=== PATIENT | female | born 1945 | race Caucasian/White ===

== ENCOUNTER 2017-04-15 11:31 | Outpatient (RCR) | payer MEDICARE, OTHER | END 2017-04-15 12:55 | disposition home or self-care (01) | PROVIDERS: ATTEND Nurse Practitioner Family | DX: Z47.1 Aftercare following joint replacement surgery (principal); Z96.652 Presence of left artificial knee joint ==

== ENCOUNTER 2018-02-19 18:28 | Emergency (ER) | payer MEDICARE, OTHER ==
[~2018-02-19] VITALS: Ht 172.7 cm; Wt 77.6 kg
--- NOTE | 2018-02-19 19:42 | ED Integumentary General ---
General Chief Complaint: Allergic Reaction Stated Complaint: ALLERGIC REACTION TO FACE WASH AND LOTION Nursing Triage Note: PT PRESENTS TO ER WITH COMPLAINT OF FACIAL REDNESS AND ITCHING/BURNING. STATES SHE USED A DIFFERENT FACE WASH YESTERDAY AND HAS HAD SYMPTOMS EVER SINCE. STATES SHE TOOK ZYRTEC AT 9A AND BENADRYL AT 3P. Source: patient, family Exam Limitations: no limitations History of Present Illness Date Seen by Provider: Feb 19, 2018 Time Seen by Provider: 19:37 Initial Comments Patient is a 73-year-old female who presents to the emergency room with complaints of allergic reaction to the face. She reports that she started using a different face wash yesterday and has had symptoms ever since. She took Benadryl and Zyrtec today without relief. Timing/Duration: yesterday Location: face Possible Cause: soaps Modifying Factors: improves with other (go washcloth) Associated Symptoms: rash Allergies and Home Medications Allergies Coded Allergies: Aspirin (Verified Adverse Reaction, Mild, STOMACH UPSET, 05/02/07) Codeine (Verified Adverse Reaction, Mild, MAKES HER DIZZY, 05/02/07) Ibuprofen (Verified Adverse Reaction, Mild, STOMACH UPSET, 05/02/07) Propoxyphene (Verified Adverse Reaction, Mild, HEADACHE, 05/02/07) Patient Home Medication List Home Medication List Reviewed: Yes Constitutional: see HPI; No chills, No diaphoresis, No fever EENTM: no symptoms reported Respiratory: see HPI; No cough, No dyspnea on exertion, No hemoptysis, No short of breath, No stridor Cardiovascular: see HPI; No chest pain, No edema Gastrointestinal: see HPI; No abdominal pain, No constipation, No diarrhea Genitourinary: see HPI; No decreased output, No discharge, No dysuria Musculoskeletal: see HPI; No back pain, No gout, No joint pain Skin: see HPI, pruritus, rash (itching red rash to the face.) Psychiatric/Neurological: See HPI; Denies Anxiety, Denies Depressed Endocrine: See HPI; Denies Excessive Sweating, Denies Flushing Hematologic/Lymphatic: See HPI; Denies Anemia All Other Systems Reviewed Negative Unless Noted: Yes Past Ngkchsx-Ttxnay-Qiopmf Hx Past Med/Social Hx: Reviewed Nursing Past Med/Soc Hx Patient Social History Recent Foreign Travel: No Contact w/Someone Who Travel: No Recent Infectious Disease Expo: No Immunizations Up To Date Tetanus Booster (TDap): More than 5yrs Past Medical History Reproductive Disorders: No Family Medical History Reviewed Nursing Family Hx Physical Exam Vital Signs Capillary Refill : Less Than 3 Seconds General Appearance: WD/WN, no apparent distress HEENT: PERRL/EOMI, normal ENT inspection, TMs normal, pharynx normal Neck: non-tender, full range of motion, supple, normal inspection Cardiovascular: normal peripheral pulses, regular rate, rhythm, no edema, no gallop, no JVD, no murmur Respiratory: chest non-tender, lungs clear, normal breath sounds, no respiratory distress, no accessory muscle use Gastrointestinal: normal bowel sounds, non tender, soft, no organomegaly, no pulsatile mass Back: normal inspection, no CVA tenderness, no vertebral tenderness Extremities: normal range of motion, non-tender, normal inspection, no pedal edema, no calf tenderness Neurologic/Psychiatric: alert, normal mood/affect, oriented x 3 Skin: rash (patient has a pruritic erythematous rash to her face and a mask pattern) Skin Problem Character: erythema, rash, urticarial Lymphatic: no adenopathy Progress/Results/Core Measures Results/Orders My Orders Orders - GABINO ALLEN Diphenhydramine Injection (Benadryl Inje (02/19/18 19:45) Dexamethasone Injection (Decadron Inject (02/19/18 19:45) Im/Sub-Q Injection Non-Ab Ed (02/19/18 ) Vital Signs/I&O Blood Pressure Mean: 99 Departure Impression Primary Impression: Allergic reaction Disposition: 01 HOME, SELF-CARE Condition: Stable/Unchanged Departure-Patient Inst. Decision time for Depature: 19:38 Referrals: REMINGTON HEWITT DPM (PCP) Primary Care Physician SKYLAR DE DIOS MD Patient Instructions: Chemical Exposure to the Skin (DC) Add. Discharge Instructions: You may use Benadryl topical cream and oral Benadryl as directed by the bottle. Follow-up with Dr. De Dios within 1 week for recheck. Return back to the emergency room for any concerns as needed. All discharge instructions reviewed with patient and/or family. Voiced understanding. GABINO ALLEN Feb 19, 2018 19:42
[2018-02-19] MEDS ORDERED: diphenhydrAMINE 50 MG/ML INJ (BENADRYL) IM ONE (19:45)
[2018-02-19] MEDS ORDERED: DEXAMETHASONE 10 MG/ML (DECADRON) 1 ML VIAL IM ONE (19:45)
[2018-02-19 20:12] VITALS: BP 155/72
--- OUTSIDE RECORDS SUMMARY | 2018-02-20 13:02 | XMS REPORT | Continuity of Care Document ---
Author Author [facility] Organization [facility] Address Unknown Phone Unavailable Allergies Active Description Code Type Severity Reaction Onset Reported/Identified Relationship to Patient Clinical Status Yes ASPIRIN UNKNOWN UNKNOWN Yes CODEINE SULFATE UNKNOWN UNKNOWN Yes aspirin [id number] Drug Allergy Mild STOMACH UPSET 05/02/2007 Yes codeine [id number] Drug Allergy Mild MAKES HER DIZZY 05/02/2007 Yes ibuprofen [id number] Drug Allergy Mild STOMACH UPSET 05/02/2007 Yes propoxyphene [id number] Drug Allergy Mild HEADACHE 05/02/2007 Medications There is no data. Problems Date Dx Coded Attending Type Code Diagnosis Diagnosed By 07/07/1254 TANNER DE LA CRUZ APRN Ot Z47.1 AFTERCARE FOLLOWING JOINT REPLACEMENT MÉNDEZ 07/07/1254 TANNER DE LA CRUZ APRN Ot Z96.652 PRESENCE OF LEFT ARTIFICIAL KNEE JOINT 07/20/2013 SENG JANSEN, LUPE Pascal Ot 812.03 FX GR TUBEROS HUMERUS-CL 07/20/2013 SENG JANSEN, LUPE Pascal Ot 831.01 ANT DISLOC HUMERUS-CLOSE 07/20/2013 SENG JANSEN, LUPE Pascal Ot 959.2 SHLDR/UPPER ARM INJ NOS 07/20/2013 SENG JANSEN, LUPE Pascal Ot E000.8 OTHER EXTERNAL CAUSE STATUS 07/20/2013 SENG JANSEN, LUPE Pascal Ot E849.[address] NEC 07/20/2013 SENG JANSEN, LUPE Pascal Ot E885.9 FALL FROM SLIPPING, TRIPPING, OR STUMBLI 03/10/2017 TANNER DE LA CRUZ APRN Ot Z47.1 AFTERCARE FOLLOWING JOINT REPLACEMENT MÉNDEZ 03/10/2017 TANNER DE LA CRUZ APRN Ot Z96.652 PRESENCE OF LEFT ARTIFICIAL KNEE JOINT 03/17/2017 TANNER DE LA CRUZ APRN Ot Z47.1 AFTERCARE FOLLOWING JOINT REPLACEMENT MÉNDEZ 03/17/2017 JONO TANNER [employer] ENRICHMENT ASSISTANT Ot Z96.652 PRESENCE OF LEFT ARTIFICIAL KNEE JOINT 03/17/2017 JONO TANNER E LIFE ENRICHMENT ASSISTANT Ot Z47.1 AFTERCARE FOLLOWING JOINT REPLACEMENT MÉNDEZ 03/17/2017 JONO TANNER E LIFE ENRICHMENT ASSISTANT Ot Z96.652 PRESENCE OF LEFT ARTIFICIAL KNEE JOINT 03/17/2017 JONO, TANNER E LIFE ENRICHMENT ASSISTANT Ot Z47.1 AFTERCARE FOLLOWING JOINT REPLACEMENT MÉNDEZ 03/17/2017 JONO TANNER E LIFE ENRICHMENT ASSISTANT Ot Z96.652 PRESENCE OF LEFT ARTIFICIAL KNEE JOINT 04/15/2017 JONO TANNER E LIFE ENRICHMENT ASSISTANT Ot Z47.1 AFTERCARE FOLLOWING JOINT REPLACEMENT MÉNDEZ 04/15/2017 JONO TANNER E LIFE ENRICHMENT ASSISTANT Ot Z96.652 PRESENCE OF LEFT ARTIFICIAL KNEE JOINT 02/02/2018 REMINGTON HEWITT DPM Ot 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 Results Test Result Range Surgical Pathology - 01/11/18 11:00 Surg Path Sent to [facility] Encounters ACCT No. Visit Date/Time Discharge Status Pt. Type Provider Facility Loc./Unit Complaint [id number] 02/16/2018 15:15:00 02/16/2018 23:59:59 CLS Outpatient REMINGTON HEWITT DPM [facility] REHAB R ANKLE TENDONITIS [id number] 04/15/2017 11:31:00 04/15/2017 23:59:59 CLS Outpatient TANNER DE LA CRUZ APRN [facility] REHAB LT TKA [id number] 07/31/2014 12:36:00 07/31/2014 23:59:59 CLS Outpatient COLTHARP BHUPINDER ANGELO A [facility] QUICK [id number] 07/20/2013 08:16:00 07/20/2013 11:42:00 DIS Emergency SENG JANSEN, LUPE Pascal [facility] ER FALL/LEFT ARM INJURY [id number] 01/11/2018 10:00:00 01/11/2018 23:59:00 DIS Outpatient Indy Donis [id number] 04/08/2017 08:48:00 04/08/2017 23:59:00 DIS Outpatient Indy Donis [id number] 07/31/2014 12:37:45 ACT Document Registration
== END 2018-02-19 20:12 | disposition home or self-care (01) ==
LOC: EDUNIT# 18:28 → ER 18:30
DX: T78.40XA Allergy, unspecified, initial encounter (principal); Z88.6 Allergy status to analgesic agent; Z88.8 Allergy status to other drugs, medicaments and biological substances; Z88.5 Allergy status to narcotic agent
CPT/HCPCS: 96372; 99284

== ENCOUNTER 2020-12-03 15:24 | Outpatient (RCR) | payer MEDICARE, OTHER | END 2020-12-03 16:04 | disposition home or self-care (01) | PROVIDERS: ATTEND Nurse Practitioner Family | DX: S82.121D Displaced fracture of lateral condyle of right tibia, subsequent encounter for closed fracture with routine healing (principal) ==

== ENCOUNTER 2022-04-21 01:53 | Observation (INO) | payer MEDICARE, OTHER ==
[~2022-04-21] VITALS: Ht 172.7 cm; Wt 77.7 kg
[2022-04-21] VITALS (19 sets, daily range): BP systolic 132–166; BP diastolic 58–84
[2022-04-21] MEDS ORDERED: NITROGLYCERIN 0.4 MG SL TABS BTL 25'S SL PRN ×2 (02:00→04:45)
[2022-04-21] MEDS ORDERED: ASPIRIN 81 MG CHEW (CHILDREN'S ASA) PO ONE (02:15)
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
[2022-04-21 02:18] LABS: BASOPHILS % (AUTO) 1 % (0-10); EOSINOPHILS # (AUTO) 0.2 10^3/uL (0.0-0.3); EOSINOPHILS % (AUTO) 3 % (0-10); HEMATOCRIT 37 % (35-52); LYMPHOCYTES # (AUTO) 2.1 10^3/uL (1.0-4.0); LYMPHOCYTES % (AUTO) 30 % (12-44); MEAN CORPUSCULAR HEMOGLOBIN 28 pg (25-34); MEAN CORPUSCULAR HGB CONC 32 g/dL (32-36); MEAN CORPUSCULAR VOLUME 87 fL (80-99); MEAN PLATELET VOLUME 11.1 fL (9.0-12.2); MONOCYTES % (AUTO) 14 % (0-12); NEUTROPHILS # (AUTO) 3.8 10^3/uL (1.8-7.8); NEUTROPHILS % (AUTO) 53 % (42-75); PLATELET COUNT 243 10^3/uL (130-400); WHITE BLOOD COUNT 7.2 10^3/uL (4.3-11.0)
[2022-04-21 02:29] LABS: ALBUMIN 4.3 GM/DL (3.2-4.5); POTASSIUM 3.8 MMOL/L (3.6-5.0)
[2022-04-21 02:31] LABS: CALCIUM 9.5 MG/DL (8.5-10.1)
[2022-04-21 02:32] LABS: TOTAL PROTEIN 7.5 GM/DL (6.4-8.2)
[2022-04-21 02:33] LABS: BILIRUBIN,TOTAL 0.2 MG/DL (0.1-1.0)
[2022-04-21 02:35] LABS: CREATININE SERUM 0.97 MG/DL (0.60-1.30)
[2022-04-21 02:38] LABS: MAGNESIUM 2.1 MG/DL (1.6-2.4)
[2022-04-21 02:42] LABS: INR 0.9 (0.8-1.4); PROTHROMBIN TIME PATIENT 12.4 SEC (12.2-14.7)
[2022-04-21 02:51] LABS: CREATINE KINASE MB 7.6 NG/ML (<6.6)
[2022-04-21 02:57] LABS: CLARITY,URINE CLEAR; COLOR,URINE YELLOW; GLUCOSE, URINE (UA) NEGATIVE (NEGATIVE); PH,URINE 5.5 (5-9); PROTEIN,URINE NEGATIVE (NEGATIVE)
[2022-04-21 02:58] LABS: BACTERIA,URINE NEGATIVE /HPF; BILIRUBIN,URINE NEGATIVE (NEGATIVE); KETONES,URINE NEGATIVE (NEGATIVE); LEUKOCYTE ESTERASE ,URINE TRACE (NEGATIVE); NITRITE,URINE NEGATIVE (NEGATIVE); WBC,URINE RARE /HPF
[2022-04-21] MEDS ORDERED: ONDANSETRON 4 MG/2 ML (SDV) Z0FRAN IVP PRN (04:45)
[2022-04-21] MEDS ORDERED: morphine INJ 4 MG/ML 1 ML (VIAL/SYRINGE) IV PRN (04:45)
[2022-04-21 05:32] LABS: TRIGLYCERIDES 136 MG/DL (<150); VLDL CHOLESTEROL 27 MG/DL (5-40)
[2022-04-21 05:37] LABS: CHOLESTEROL 174 MG/DL (< 200); HDL CHOLESTEROL 51 MG/DL (40-60)
[2022-04-21] MEDS: CATHETER FLUSH 10 ML SYR IVP SCH ×3 (06:00→20:18)
--- NOTE | 2022-04-21 06:16 | Diagnostic Imaging Report ---
INDICATION: Chest pain. FINDINGS: Portable chest. The lungs are well-aerated and clear. Heart is not enlarged. No pulmonary edema or hilar adenopathy. No pneumothorax or pleural effusion. No bony abnormalities. IMPRESSION: Normal portable chest. Dictated by: Dictated on workstation # [id number]
--- NOTE | 2022-04-21 07:42 | Consultation-Cardiology ---
HPI-Cardiology Cardiology Consultation: Date of Consultation 04/21/22 Time Seen by a Provider: 08:30 Date of Admission 04-21-22 Attending Physician Indy Donis MD Admitting Physician Admitting Physician: Navya Herr DO Attending Physician: Navya Herr DO Consulting Physician Liliana Kelsey MD HPI: Chief Complaint: Chest pain Ms. Summers is a 77 yr old female admitted to [facility] from the ED with c/o CP. She reports she was lying in bed when she developed mid-sternal chest discomfort which she describes as a burning, pressure sensation that radiated up her chest. She reports nothing made it better or worse. She denies any associated symptoms. She reports the discomfort was constant for over 30 minutes prompting her to come to the ED. She states last night while in the ED she did develop the discomfort again, but feels it was not as intense and it only lasted a few minutes that time. She reports no further discomfort since. She denies any n/v/d. No c/o fever or chills. No LE swelling. Review of Systems-Cardiology Review of Systems Constitutional: No chills, No fever, No lightheadedness, No malaise Eyes: No vision change Ears/Nose/Throat: No epistaxis, No nasal drainage, No recent hearing loss Respiratory: As described under HPI Cardiovascular: As described under HPI Gastrointestinal: No constipation, No diarrhea, No nausea, No vomiting Genitourinary: No dysuria, No hematuria Musculoskeletal: no symptoms reported Skin: No rash on exposed areas, No ulcerations on exposed areas Psychiatric/Neurological: No anxiety, No depression, No seizure, No focal weakness, No syncope Hematologic: No bleeding abnormalities VRO-Dwsajn-Vnctir Hx Patient Social History Smoking Status: Never a Smoker Have you traveled recently?: No Alcohol Use?: No Pt feels they are or have been: No Immunizations Up To Date Tetanus Booster (TDap): More than 5yrs Past Medical History PMH As described under Assessment. Family Medical History Family Medical History: No known family h/o CAD. Allergies and Home Medications Allergies Coded Allergies: aspirin (Verified Adverse Reaction, Mild, STOMACH UPSET, 05/02/07) codeine (Verified Adverse Reaction, Mild, MAKES HER DIZZY, 05/02/07) ibuprofen (Verified Adverse Reaction, Mild, STOMACH UPSET, 05/02/07) propoxyphene (Verified Adverse Reaction, Mild, HEADACHE, 05/02/07) Patient Home Medication List Cyanocobalamin (Cyanocobalamin Injection) 1,000 Mcg/Ml Inj, 1,000 MCG IM MONTHLY, (Reported) Entered as Reported by: MADELINE CHIN on 04/21/221050 Last Action: Reviewed Latanoprost (Xalatan) 0.005 % Drops, 1 DROP OU HS, (Reported) Entered as Reported by: MADELINE CHIN on 04/21/221050 Last Action: Reviewed Levothyroxine Sodium (Levothyroxine Sodium) 50 Mcg Tablet, 50 MCG PO DAILY, (Reported) Entered as Reported by: MADELINE CHIN on 04/21/221050 Last Action: Reviewed Losartan Potassium (Losartan Potassium) 50 Mg Tablet, 50 MG PO BID WITH MEALS, (Reported) Entered as Reported by: MADELINE CHIN on 04/21/221050 Last Action: Reviewed Simvastatin (Simvastatin) 10 Mg Tablet, 10 MG PO HS, (Reported) Entered as Reported by: MADELINE CHIN on 04/21/221050 Last Action: Reviewed Physical Exam-Cardiology Physical Exam Vital Signs/I&O 04/21/22 04/21/22 04/21/22 04/21/22 01:59 03:59 04:28 04:29 Temp 36.0 36.0 Pulse 76 57 64 59 Resp 16 16 B/P (MAP) 184/99 (127) 136/78 138/80 (92) Pulse Ox 97 98 O2 Delivery Room Air Room Air Room Air 04/21/22 04/21/22 04/21/22 04/21/22 04:30 04:30 04:36 04:36 Temp 36.3 Pulse 63 Resp 24 B/P (MAP) 134/80 (93) Pulse Ox 98 97 O2 Delivery Room Air Room Air Room Air 04/21/22 04/21/22 04/21/22 04/21/22 04:45 05:02 05:15 05:30 Pulse 62 65 56 76 Resp 26 B/P (MAP) 153/73 (95) 152/67 (99) 154/76 (95) 135/59 (82) Pulse Ox 98 94 O2 Delivery Room Air Room Air Room Air Room Air 04/21/22 04/21/22 04/21/2222 06:00 07:34 08:00 08:00 Pulse 63 70 75 Resp 20 21 B/P (MAP) 132/60 (80) 154/76 (102) Pulse Ox 96 99 O2 Delivery Room Air Room Air Room Air 04/21/22 04/21/22 04/21/22 04/21/22 08:49 09:00 10:00 11:00 Temp 37.0 Pulse 68 69 65 63 Resp 19 20 17 16 B/P (MAP) 154/76 (102) 150/69 (96) 157/74 (101) 166/73 (104) Pulse Ox 97 96 98 98 O2 Delivery Room Air Room Air Room Air Room Air 04/21/22 04/21/22 12:00 12:33 Pulse 56 63 Resp 27 B/P (MAP) 138/63 (88) Pulse Ox 97 O2 Delivery Room Air Capillary Refill : Less Than 3 Seconds Constitutional: AAO x 3, well-developed, well-nourished HEENT: PERRL, hearing is well preserved, oral hygience is good Neck: No carotid bruit; carotid pulses are 2 + bilaterally Respiratory: No accessory muscle use, No respiratory distress; chest expansion is symmetric, chest is bilaterally symmetric, lungs clear to auscultation Cardiovascular: regular rate-rhythm; No JVD; S1 and S2, systolic murmur (2-3/6 MSM) Gastrointestinal: soft, round; No guarding; audible bowel sounds Extremities: no lower extremity edema bilateral Neurologic/Psychiatric: grossly intact (moves all extremities) Skin: No rash on exposed areas, No ulcerations on exposed areas Data Review Labs Laboratory Tests 04/21/22 02:05: White Blood Count 7.2, Red Blood Count 4.28, Hemoglobin 12.0, Hematocrit 37, Mean Corpuscular Volume 87, Mean Corpuscular Hemoglobin 28, Mean Corpuscular Hemoglobin Concent 32, Red Cell Distribution Width 14.6H, Platelet Count 243, Mean Platelet Volume 11.1, Immature Granulocyte % (Auto) 0, Neutrophils (%) (Auto) 53, Lymphocytes (%) (Auto) 30, Monocytes (%) (Auto) 14H, Eosinophils (%) (Auto) 3, Basophils (%) (Auto) 1, Neutrophils # (Auto) 3.8, Lymphocytes # (Auto) 2.1, Monocytes # (Auto) 1.0, Eosinophils # (Auto) 0.2, Basophils # (Auto) 0.0, Immature Granulocyte # (Auto) 0.0, Prothrombin Time 12.4, INR Comment 0.9, Activated Partial Thromboplast Time 30, Sodium Level 143, Potassium Level 3.8, Chloride Level 106, Carbon Dioxide Level 22, Anion Gap 15H, Blood Urea Nitrogen 18, Creatinine 0.97, Estimat Glomerular Filtration Rate 61, BUN/Creatinine Ratio 19, Glucose Level 112H, Calcium Level 9.5, Corrected Calcium 9.3, Magnesium Level 2.1, Total Bilirubin 0.2, Aspartate Amino Transf (AST/SGOT) 31, Alanine Aminotransferase (ALT/SGPT) 24, Alkaline Phosphatase 76, Total Creatine Kinase 374H, Creatine Kinase MB 7.6*H, Myoglobin 101.9H, Troponin I < 0.028, B-Type Natriuretic Peptide 50.1, Total Protein 7.5, Albumin 4.3, Amylase Level 72, Lipase 27 04/21/22 02:30: Urine Color YELLOW, Urine Clarity CLEAR, Urine pH 5.5, Urine Specific [place] <=1.005, Urine Protein NEGATIVE, Urine Glucose (UA) NEGATIVE, Urine Ketones NEGATIVE, Urine Nitrite NEGATIVE, Urine Bilirubin NEGATIVE, Urine Urobilinogen 0.2, Urine Leukocyte Esterase TRACEH, Urine RBC (Auto) NEGATIVE, Urine RBC NONE, Urine WBC RARE, Urine Crystals NONE, Urine Bacteria NEGATIVE, Urine Casts NONE, Urine Mucus NEGATIVE, Urine Culture Indicated NO 04/21/22 04:54: Troponin I < 0.028, Triglycerides Level 136, Cholesterol Level 174, LDL Cholesterol Direct 108, VLDL Cholesterol 27, HDL Cholesterol 51 04/21/22 09:05: Troponin I < 0.028 Radiology NAME: KOJO SUMMERS [facility] REC#: [id number] PT STATUS: ADM Blaze : 1945 PHYSICIAN: INDY ORTEGA DO ADMIT DATE: 04/21/22/MONAE Draft Date of Exam:04/21/22 CHEST 1 VIEW, AP/PA ONLY INDICATION: Chest pain. FINDINGS: Portable chest. The lungs are well-aerated and clear. Heart is not enlarged. No pulmonary edema or hilar adenopathy. No pneumothorax or pleural effusion. No bony abnormalities. IMPRESSION: Normal portable chest. Dictated on workstation # [id number] Dict: 04/21/22614 Trans: 04/21/22 0616 [id number] Interpreted by: DHARMESH BILLINGSLEY MD Electronically signed by: ECG Impression ECG Initial ECG Rhythm: Normal Sinus A/P-Cardiology Assessment/Admission Diagnosis Chest pain - no evidence of ACS - undetermined etiology Aortic stenosis - [place] [facility] [place] showed LVEF 60%. Mild to mod aortic valve stenosis, mild to mod aortic regurg. Mild MR and TR. PASP 25 mmHg HTN Hyperlipidemia - treated with statin, managed by Dr Donis Carotid u/s of 02-10-22 showed mild to mod bilat dz Discussion and Recomendations Chest pain of undetermined etiology - no evidence of ACS - advise MPI to eval perfusion based on symptoms and h/o Add PPI Continue home anti-hypertensive regimen Monitor lab closely Replace electrolytes as indicated Further recs will be based on her hospital course We would like to thank medical services for this consult Clinical Quality Measures AMI/AHF: ASA po Prior to arrival: ZEUS Garcia Apr 21, 2022 07:42
[2022-04-21] MEDS: PANTOPRAZOLE 40 MG (PROTONIX) TAB PO SCH (09:11)
[2022-04-21] MEDS: ASPIRIN E.C. 81 MG (ECOTRIN) TAB PO SCH (09:11)
--- NOTE | 2022-04-21 09:45 | Consultation-Cardiology ---
HPI-Cardiology Cardiology Consultation: Date of Consultation 04/21/22 Time Seen by a Provider: 09:30 Date of Admission Attending Physician Indy Donis MD Admitting Physician Admitting Physician: Navya Herr DO Attending Physician: Navya Herr DO Consulting Physician МАРИНА BROWN MD, MA, FACP, FACC, [facility] [place] CCDS HPI: Chief Complaint: Chest pain Ms. Guzmán is a 77 yr old female admitted to [facility] from the ED with c/o CP. She reports she was lying in bed when she developed mid-sternal chest discomfort which she describes as a burning, pressure sensation that radiated up her chest. She reports nothing made it better or worse. She denies any associated symptoms. She reports the discomfort was constant for over an hour prompting her to come to the ED. It was more than a couple of hours before it resolved in the ED, nitro helped some but did not resolve it completely. She states last night while in the ED she did develop the discomfort again, but feels it was not as intense and it only lasted a few minutes that time. She reports no further discomfort since. She denies any n/v/d. No c/o fever or chills. No LE swelling. Review of Systems-Cardiology Review of Systems Constitutional: No chills, No fever, No lightheadedness, No malaise Eyes: No vision change Ears/Nose/Throat: No epistaxis, No nasal drainage, No recent hearing loss Respiratory: As described under HPI Cardiovascular: As described under HPI Gastrointestinal: No constipation, No diarrhea, No nausea, No vomiting Genitourinary: No dysuria, No hematuria Musculoskeletal: no symptoms reported Skin: No rash on exposed areas, No ulcerations on exposed areas Psychiatric/Neurological: No anxiety, No depression, No seizure, No focal weakness, No syncope Hematologic: No bleeding abnormalities [id number]-[id number]-Llfqmz Hx Patient Social History Smoking Status: Never a Smoker Have you traveled recently?: No Alcohol Use?: No Pt feels they are or have been: No Immunizations Up To Date Tetanus Booster (TDap): More than 5yrs Past Medical History PMH As described under Assessment. Family Medical History Family Medical History: No known family h/o CAD. Allergies and Home Medications Allergies Coded Allergies: aspirin (Verified Adverse Reaction, Mild, STOMACH UPSET, 05/02/07) codeine (Verified Adverse Reaction, Mild, MAKES HER DIZZY, 05/02/07) ibuprofen (Verified Adverse Reaction, Mild, STOMACH UPSET, 05/02/07) propoxyphene (Verified Adverse Reaction, Mild, HEADACHE, 05/02/07) Patient Home Medication List Home Medication List Reviewed: Yes Physical Exam-Cardiology Physical Exam Vital Signs/I&O 04/21/22 04/21/22 04/21/22 04/21/22 01:59 03:59 04:28 04:29 Temp 36.0 36.0 Pulse 76 57 64 59 Resp 16 16 B/P (MAP) 184/99 (127) 136/78 138/80 (92) Pulse Ox 97 98 O2 Delivery Room Air Room Air Room Air 04/21/22 04/21/22 04/21/22 04/21/22 04:30 04:30 04:36 04:36 Temp 36.3 Pulse 63 Resp 24 B/P (MAP) 134/80 (93) Pulse Ox 98 97 O2 Delivery Room Air Room Air Room Air 04/21/22 04/21/22 04/21/22 04/21/22 04:45 05:02 05:15 05:30 Pulse 62 65 56 76 Resp 26 B/P (MAP) 153/73 (95) 152/67 (99) 154/76 (95) 135/59 (82) Pulse Ox 98 94 O2 Delivery Room Air Room Air Room Air Room Air 04/21/22 04/21/22 04/21/22 04/21/22 06:00 07:34 08:00 08:49 Temp 37.0 Pulse 63 70 75 68 Resp 20 21 19 B/P (MAP) 132/60 (80) 154/76 (102) 154/76 (102) Pulse Ox 96 99 97 O2 Delivery Room Air Room Air Room Air 04/21/22 09:00 Pulse 69 Resp 20 B/P (MAP) 150/69 (96) Pulse Ox 96 O2 Delivery Room Air Capillary Refill : Less Than 3 Seconds Constitutional: AAO x 3, well-developed, well-nourished HEENT: PERRL, hearing is well preserved, oral hygience is good Neck: No carotid bruit; carotid pulses are 2 + bilaterally Respiratory: No accessory muscle use, No respiratory distress; chest expansion is symmetric, chest is bilaterally symmetric, lungs clear to auscultation Cardiovascular: regular rate-rhythm; No JVD; S1 and S2, systolic murmur (2-3/6 MSM) Gastrointestinal: soft, round; No guarding; audible bowel sounds Extremities: no lower extremity edema bilateral Neurologic/Psychiatric: grossly intact (moves all extremities) Skin: No rash on exposed areas, No ulcerations on exposed areas Data Review Labs Laboratory Tests 04/21/22 02:05: White Blood Count 7.2, Red Blood Count 4.28, Hemoglobin 12.0, Hematocrit 37, Mean Corpuscular Volume 87, Mean Corpuscular Hemoglobin 28, Mean Corpuscular Hemoglobin Concent 32, Red Cell Distribution Width 14.6H, Platelet Count 243, Mean Platelet Volume 11.1, Immature Granulocyte % (Auto) 0, Neutrophils (%) (Auto) 53, Lymphocytes (%) (Auto) 30, Monocytes (%) (Auto) 14H, Eosinophils (%) (Auto) 3, Basophils (%) (Auto) 1, Neutrophils # (Auto) 3.8, Lymphocytes # (Auto) 2.1, Monocytes # (Auto) 1.0, Eosinophils # (Auto) 0.2, Basophils # (Auto) 0.0, Immature Granulocyte # (Auto) 0.0, Prothrombin Time 12.4, INR Comment 0.9, Activated Partial Thromboplast Time 30, Sodium Level 143, Potassium Level 3.8, Chloride Level 106, Carbon Dioxide Level 22, Anion Gap 15H, Blood Urea Nitrogen 18, Creatinine 0.97, Estimat Glomerular Filtration Rate 61, BUN/Creatinine Ratio 19, Glucose Level 112H, Calcium Level 9.5, Corrected Calcium 9.3, Magnesium Level 2.1, Total Bilirubin 0.2, Aspartate Amino Transf (AST/SGOT) 31, Alanine Aminotransferase (ALT/SGPT) 24, Alkaline Phosphatase 76, Total Creatine Kinase 374H, Creatine Kinase MB 7.6*H, Myoglobin 101.9H, Troponin I < 0.028, B-Type Natriuretic Peptide 50.1, Total Protein 7.5, Albumin 4.3, Amylase Level 72, Lipase 27 04/21/22 02:30: Urine Color YELLOW, Urine Clarity CLEAR, Urine pH 5.5, Urine Specific [place] <=1.005, Urine Protein NEGATIVE, Urine Glucose (UA) NEGATIVE, Urine Ketones NEGATIVE, Urine Nitrite NEGATIVE, Urine Bilirubin NEGATIVE, Urine Urobilinogen 0.2, Urine Leukocyte Esterase TRACEH, Urine RBC (Auto) NEGATIVE, Urine RBC NONE, Urine WBC RARE, Urine Crystals NONE, Urine Bacteria NEGATIVE, Urine Casts NONE, Urine Mucus NEGATIVE, Urine Culture Indicated NO 04/21/22 04:54: Troponin I < 0.028, Triglycerides Level 136, Cholesterol Level 174, LDL Cholesterol Direct 108, VLDL Cholesterol 27, HDL Cholesterol 51 04/21/22 09:05: Troponin I < 0.028 A/P-Cardiology Assessment/Admission Diagnosis Chest pain - no evidence of ACS - undetermined etiology Aortic stenosis - Ech[place]ogram of 01-29-22 at [facility] [place] Mcdaniels showed LVEF 60%. Mild to mod aortic valve stenosis, mild to mod aortic regurg. Mild MR and TR. PASP 25 mmHg HTN Hyperlipidemia - treated with statin, managed by Dr Gagandeep Gracia u/s of 02-10-22 showed mild to mod bilat dz Discussion and Recomendations Chest pain of undetermined etiology - no evidence of ACS - advise MPI to eval perfusion based on symptoms and h/o Add PPI Continue home anti-hypertensive regimen Monitor lab closely Replace electrolytes as indicated Further recs will be based on her hospital course We would like to thank medical services for this consult. Discussed with Dr Herr Clinical Quality Measures AMI/AHF: ASA po Prior to arrival: МАРИНА Jackson MD FACP FAC CCDS Apr 21, 2022 09:45
[2022-04-21] MEDS ORDERED: SIMV10TA26 PO (10:51)
[2022-04-21] MEDS ORDERED: LATA2.5D19 OU (10:51)
[2022-04-21] MEDS ORDERED: LOSA50TA63 PO (10:51)
[2022-04-21] MEDS ORDERED: LEVO50TA6 PO (10:51)
[2022-04-21] MEDS ORDERED: CNC1KV IM (10:51)
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
[2022-04-21] MEDS ORDERED: PATIENT MAY USE OWN MEDS, ALL MC SCH ×2 (15:00→15:15)
[2022-04-21] MEDS: LOSARTAN 50 MG (COZAAR) TAB PO SCH (18:20)
[2022-04-21] MEDS ORDERED: ACETAMINOPHEN 325 MG TABLET PO PRN (19:45)
[2022-04-21] MEDS ORDERED: MELATONIN 3 MG TABLET PO PRN (19:45)
[2022-04-21] MEDS ORDERED: LOPERAMIDE 2 MG (IMODIUM) TABLET PO PRN (19:45)
[2022-04-21] MEDS ORDERED: HYDROcodone/APAP 5 MG/325 MG (LORTAB) TAB PO PRN (19:45)
[2022-04-21] MEDS ORDERED: MENTHOL/ZINC OXIDE (CALMOSEPTINE) 113 GM TUBE TP PRN (19:45)
[2022-04-21] MEDS ORDERED: CALCIUM CARBONATE 500 MG (TUMS) TAB.CHEW PO PRN (19:45)
[2022-04-21] MEDS ORDERED: DOCUSATE SODIUM 100 MG (COLACE) CAP PO PRN (19:45)
[2022-04-21] MEDS ORDERED: ALPRAZolam 0.25 MG (XANAX) TAB PO PRN (19:45)
[2022-04-21] MEDS ORDERED: diphenhydrAMINE 25 MG TAB (BENADRYL) PO PRN (19:45)
[2022-04-21] MEDS ORDERED: LACTULOSE SYRUP 10GM/15ML (ENULOSE) 30ML UDC PO PRN (19:45)
[2022-04-21] MEDS: polyethylene glycoL POWDER 17 GM (MIRALAX) PACK PO SCH (20:17)
[2022-04-21] MEDS: SENNA W/DOCUSATE (SENOKOT S) TABLET PO SCH (20:17)
[2022-04-21] MEDS ORDERED: LATANOPROST 0.005% (XALATAN) OPHTH SOLN 2.5 ML OU SCH (21:00)
[2022-04-21] MEDS ORDERED: SIMVASTATIN 10 MG TAB PO SCH (21:00)
[2022-04-22 03:56] VITALS: BP_SYST 133; BP_SYST 145; BP_DIAS 65; BP_DIAS 67
[2022-04-22 05:22] LABS: BASOPHILS % (AUTO) 1 % (0-10); EOSINOPHILS # (AUTO) 0.2 10^3/uL (0.0-0.3); EOSINOPHILS % (AUTO) 3 % (0-10); HEMATOCRIT 35 % (35-52); HEMOGLOBIN 11.4 g/dL (11.5-16.0); LYMPHOCYTES # (AUTO) 1.8 10^3/uL (1.0-4.0); LYMPHOCYTES % (AUTO) 26 % (12-44); MEAN CORPUSCULAR HEMOGLOBIN 28 pg (25-34); MEAN CORPUSCULAR HGB CONC 32 g/dL (32-36); MEAN CORPUSCULAR VOLUME 86 fL (80-99); MEAN PLATELET VOLUME 11.5 fL (9.0-12.2); MONOCYTES % (AUTO) 14 % (0-12); NEUTROPHILS # (AUTO) 4.1 10^3/uL (1.8-7.8); NEUTROPHILS % (AUTO) 58 % (42-75); PLATELET COUNT 222 10^3/uL (130-400); WHITE BLOOD COUNT 7.1 10^3/uL (4.3-11.0)
[2022-04-22 05:33] LABS: ALBUMIN 3.8 GM/DL (3.2-4.5); POTASSIUM 4.1 MMOL/L (3.6-5.0)
[2022-04-22 05:35] LABS: CALCIUM 9.1 MG/DL (8.5-10.1)
[2022-04-22 05:36] LABS: TOTAL PROTEIN 6.5 GM/DL (6.4-8.2)
[2022-04-22 05:38] LABS: BILIRUBIN,TOTAL 0.4 MG/DL (0.1-1.0)
[2022-04-22 05:39] LABS: CREATININE SERUM 1.19 MG/DL (0.60-1.30)
[2022-04-22] MEDS ORDERED: REGADENOSON 0.4 MG/5 ML SYR (LEXISCAN) IV ONE ×2 (06:00→08:03)
[2022-04-22] MEDS ORDERED: LEVOTHYROXINE 50 MCG (LEVOTHROID) TAB PO SCH (06:30)
[2022-04-22] MEDS: CATHETER FLUSH 10 ML SYR IVP SCH ×2 (06:34→14:16)
[2022-04-22] MEDS ORDERED: CATHETER FLUSH 10 ML SYR IVP PRN (07:15)
[2022-04-22 08:00] VITALS: BP 133/58
[2022-04-22 08:05] VITALS: BP 164/75
--- NOTE | 2022-04-22 08:27 | Progress Note - Cardiology ---
Cardiology SOAP Progress Note Subjective: No c/o CP, SOB, palpitations, syncope or near syncope Wants to go home Objective: I&O/Vital Signs 04/21/22 04/21/22 04/22/22 04/22/22 21:15 23:50 00:00 00:25 Temp 37.0 Pulse 81 61 Resp 19 14 B/P (MAP) 145/67 (93) Pulse Ox 96 97 94 97 O2 Delivery Room Air Room Air Room Air Room Air 04/22/22 04/22/22 04/22/22 04/22/22 01:00 03:56 03:56 08:05 Temp 37.0 36.7 Pulse 57 57 70 69 Resp 19 20 B/P (MAP) 145/67 (93) 133/65 (87) 164/75 (104) Pulse Ox 97 98 O2 Delivery Room Air Room Air 04/21/22 23:59 Intake Total 1900 ml Balance 1900 ml Weight (Pounds): 171 Weight (Calculated Kilograms): 77.187831 Constitutional: AAO x 3, well-developed, well-nourished Respiratory: No accessory muscle use, No respiratory distress; chest expansion is symmetric, chest is bilaterally symmetric, lungs clear to auscultation Cardiovascular: regular rate-rhythm; No JVD; S1 and S2, systolic murmur (2-3/6 MSM) Gastrointestional: soft, round; No guarding; audible bowel sounds Extremities: no lower extremity edema bilateral Neurologic/Psychiatric: grossly intact (moves all extremities) Skin: No rash on exposed areas, No ulcerations on exposed areas Results/Procedures: Labs Laboratory Tests 04/21/22 09:05: Troponin I < 0.028 04/22/22 05:08: White Blood Count 7.1, Red Blood Count 4.11, Hemoglobin 11.4L, Hematocrit 35, Mean Corpuscular Volume 86, Mean Corpuscular Hemoglobin 28, Mean Corpuscular Hemoglobin Concent 32, Red Cell Distribution Width 14.6H, Platelet Count 222, Mean Platelet Volume 11.5, Immature Granulocyte % (Auto) 0, Neutrophils (%) (Auto) 58, Lymphocytes (%) (Auto) 26, Monocytes (%) (Auto) 14H, Eosinophils (%) (Auto) 3, Basophils (%) (Auto) 1, Neutrophils # (Auto) 4.1, Lymphocytes # (Auto) 1.8, Monocytes # (Auto) 1.0, Eosinophils # (Auto) 0.2, Basophils # (Auto) 0.0, Immature Granulocyte # (Auto) 0.0, Sodium Level 142, Potassium Level 4.1, Chloride Level 108H, Carbon Dioxide Level 22, Anion Gap 12, Blood Urea Nitrogen 20H, Creatinine 1.19, Estimat Glomerular Filtration Rate 48, BUN/Creatinine Ratio 17, Glucose Level 108H, Calcium Level 9.1, Corrected Calcium 9.3, Total Bilirubin 0.4, Aspartate Amino Transf (AST/SGOT) 23, Alanine Aminotransferase (ALT/SGPT) 16, Alkaline Phosphatase 61, Total Protein 6.5, Albumin 3.8 A/P: Assessment: Chest pain - no evidence of ACS - undetermined etiology Aortic stenosis - Echocardiogram of 01-29-22 at [facility] [place] by Dr. Mcdaniels showed LVEF 60%. Mild to mod aortic valve stenosis, mild to mod aortic regurg. Mild MR and TR. PASP 25 mmHg HTN Hyperlipidemia - treated with statin, managed by Dr Gagandeep Gracia u/s of 02-10-22 showed mild to mod bilat dz Plan: Chest pain of undetermined etiology - no evidence of ACS -MPI today - results pending Continue PPI BP not well controlled - Resume home anti-hypertensive regimen Monitor lab closely Replace electrolytes as indicated Clinical Quality Measures AMI/AHF: ASA po Prior to arrival: ZEUS Garcia Apr 22, 2022 08:27
[2022-04-22] MEDS: PANTOPRAZOLE 40 MG (PROTONIX) TAB PO SCH (09:00)
[2022-04-22] MEDS: ASPIRIN E.C. 81 MG (ECOTRIN) TAB PO SCH (09:00)
[2022-04-22] MEDS: polyethylene glycoL POWDER 17 GM (MIRALAX) PACK PO SCH (09:00)
[2022-04-22] MEDS: SENNA W/DOCUSATE (SENOKOT S) TABLET PO SCH (10:47)
--- NOTE | 2022-04-22 10:50 | Progress Note ---
JORGE AMAYA 04/22/22 1050: Subjective Date Seen by a Provider: Apr 22, 2022 Time Seen by a Provider: 10:40 Subjective/Events-last exam Patient is a 77 yr old white female admitted to cardiac step down (04-21-2022) following a ER visit for complaints of sternal chest pain 03/17. She was at home laying in bed when she developed mid-sternal chest discomfort which she describes as a burning and pressure. Pain did not radiate to her arm or jaw. She reports nothing made it better or worse. She has never had an episode of chest pain like this before, and no family history of heart disease. She was given nitroglycerin in the ER which did improve her pain but pain was still present at a /. She is followed by Dr. Kelsey for her murmur and aortic stenosis/regurgitation. Dr. Donis is her PCP. On 04-21-2022 the first day of her hospital stay she was seen by Dr. Kelsey for her new onset chest pain. She was in good spirits at that time. She was eating well, slept well, and was without pain. She has been on telemetry since she was admitted and had EKGs vidal en. Dr. Kelsey also started her on a PPI at that time. Today she was taken for a stress test ordered by Dr. Kelsey (results pending). She had no complaints this morning, once again she slept and ate well. Bowel movements and urination have been without issue. She had no pain to report. Labs were reviewed. Patient would like to start home medications at this time for her HTN. Patient had no other concerns at this time. Objective Exam Last Set of Vital Signs Vital Signs Date Time Temp Pulse Resp B/P (MAP) Pulse Ox O2 Delivery O2 Flow Rate FiO2 04/22/22 08:05 69 164/75 (104) 04/22/22 08:00 37.1 18 94 04/22/22 03:56 Room Air Capillary Refill : Less Than 3 Seconds I&O Intake and Output 04/22/22 00:00 Intake Total 1900 ml Output Total 0 ml Balance 1900 ml Intake Oral 1900 ml Output Urine Total 0 ml # Voids 10 Daily Weight Change No General: Alert, Oriented X3, Cooperative, No Acute Distress HEENT: Atraumatic Neck: Supple, No JVD Lungs: Clear to Auscultation Heart: Regular Rate, No Murmurs (Murmur 4/6) Abdomen: Normal Bowel Sounds, Soft Extremities: No Clubbing, No Cyanosis Skin: No Rashes, No Breakdown Neuro: Normal Speech, Strength at 5/5 X4 Ext, Sensation Intact Results Lab Laboratory Tests 04/22/22 05:08: White Blood Count 7.1, Red Blood Count 4.11, Hemoglobin 11.4L, Hematocrit 35, Mean Corpuscular Volume 86, Mean Corpuscular Hemoglobin 28, Mean Corpuscular Hemoglobin Concent 32, Red Cell Distribution Width 14.6H, Platelet Count 222, Mean Platelet Volume 11.5, Immature Granulocyte % (Auto) 0, Neutrophils (%) (Auto) 58, Lymphocytes (%) (Auto) 26, Monocytes (%) (Auto) 14H, Eosinophils (%) (Auto) 3, Basophils (%) (Auto) 1, Neutrophils # (Auto) 4.1, Lymphocytes # (Auto) 1.8, Monocytes # (Auto) 1.0, Eosinophils # (Auto) 0.2, Basophils # (Auto) 0.0, Immature Granulocyte # (Auto) 0.0, Sodium Level 142, Potassium Level 4.1, Chloride Level 108H, Carbon Dioxide Level 22, Anion Gap 12, Blood Urea Nitrogen 20H, Creatinine 1.19, Estimat Glomerular Filtration Rate 48, BUN/Creatinine Ratio 17, Glucose Level 108H, Calcium Level 9.1, Corrected Calcium 9.3, Total Bilirubin 0.4, Aspartate Amino Transf (AST/SGOT) 23, Alanine Aminotransferase (ALT/SGPT) 16, Alkaline Phosphatase 61, Total Protein 6.5, Albumin 3.8 Assessment/Plan Assessment/Plan Assess & Plan/Chief Complaint Chest pain: - no evidence of ACS- Per Dr. Kelsey - undetermined etiology- Per Dr. Kelsey - stress test preformed (results pending) Aortic stenosis: - Echocardiogram of 01-29-22 at [facility] [place] by Dr. Mcdaniels showed LVEF 60%. Mild to mod aortic valve stenosis, mild to mod aortic regurg. Mild MR and TR. PASP 25 mmHg HTN: Begin Home medications. Continue to see Dr. Kelsey Hypothyroidism: Administer Levothyroxine. Managed outpatient by Dr. Donis Hyperlipidemia: - treated with statin. Managed by Dr. Donis Carotid stenosis Based on 02-10-22 US showed mild to moderate disease Begin PPI- Per Dr. Kelsey Clinical Quality Measures AMI/AHF: ASA po Prior to arrival: No NAVYA SANDERS DO 04/22/222056: Supervisory-Addendum Brief Verification & Attestation Participated in pt care: history, MDM, physical Personally performed: exam, history, MDM, supervision of care Care discussed with: Medical Student Procedures: n/a Results interpretation: Verified all documentation Verification and Attestation of Medical Student E/M Service A medical student performed and documented this service in my presence. I reviewed and verified all information documented by the medical student and made modifications to such information, when appropriate. I personally performed the physical exam and medical decision making. Navya Sanders, Apr 22, 2022,20:57 JORGE AMAYA Apr 22, 2022 10:50 NAVYA SANDERS DO Apr 22, 2022 20:57
[2022-04-22] MEDS: LOSARTAN 50 MG (COZAAR) TAB PO SCH (10:56)
[2022-04-22 11:16] VITALS: BP 132/62
[2022-04-22 12:00] VITALS: BP 133/62
[2022-04-22] MEDS ORDERED: ASPI-1238 PO (13:04)
[2022-04-22] MEDS ORDERED: MTP25TSR PO (13:04)
[2022-04-22] MEDS ORDERED: PANT40TA52 PO (13:04)
--- NOTE | 2022-04-22 13:22 | Discharge Summary ---
Diagnosis/Chief Complaint Date of Admission Apr 21, 2022 at 03:15 Date of Discharge Discharge Date: Apr 22, 2022 Discharge Diagnosis Chest pain w/o evidence of ACS Systolic dysfunction 40% Aortic stenosis Reason Hospital Visit CC: Chest pain HPI: This is a 77yoWF clinic patient of Dr Donis and Dr Kelsey who presented to the ER with chest pain suspicious for ACS. Cardiology consulted and will perform EST tomorrow. Discharge Summary Discharge Physical Examination Allergies: Coded Allergies: aspirin (Verified Adverse Reaction, Mild, STOMACH UPSET, 05/02/07) codeine (Verified Adverse Reaction, Mild, MAKES HER DIZZY, 05/02/07) ibuprofen (Verified Adverse Reaction, Mild, STOMACH UPSET, 05/02/07) propoxyphene (Verified Adverse Reaction, Mild, HEADACHE, 05/02/07) Vitals & I&Os Vital Signs Date Time Temp Pulse Resp B/P (MAP) Pulse Ox O2 Delivery O2 Flow Rate FiO2 04/22/22 14:15 04/22/22 13:00 79 04/22/22 12:00 25 95 04/22/22 11:16 36.9 Room Air General Appearance: Alert, Oriented X3, Cooperative Respiratory: Clear to Auscultation Cardiovascular: Regular Rate Psych/Mental Status: Mental Status NL Hospital Course Was the Problem List Reviewed?: Yes Patient is a 77 yr old white female admitted to cardiac step down (04-21-2022) following a ER visit for complaints of sternal chest pain 03/17. She was at home laying in bed when she developed mid-sternal chest discomfort which she describes as a burning and pressure. Pain did not radiate to her arm or jaw. She reports nothing made it better or worse. She has never had an episode of chest pain like this before, and no family history of heart disease. She was given nitroglycerin in the ER which did improve her pain but pain was still present at a 2/10. She is followed by Dr. Kelsey for her murmur and aortic stenosis/regurgitation. Dr. Donis is her PCP. On 04-21-2022 the first day of her hospital stay she was seen by Dr. Kelsey for her new onset chest pain. She was in good spirits at that time. She was eating well, slept well, and was without pain. She has been on telemetry since she was admitted and had EKGs taken. Dr. Kelsey also started her on a PPI at that time. Today she was taken for a stress test ordered by Dr. Kelsey (results pending). She had no complaints this morning, once again she slept and ate well. Bowel movements and urination have been without issue. She had no pain to report. Labs were reviewed. Patient would like to start home medications at this time for her HTN. Patient had no other concerns at this time. Labs (last 24 hrs) Laboratory Tests 04/21/22 02:05: White Blood Count 7.2, Red Blood Count 4.28, Hemoglobin 12.0, Hematocrit 37, Mean Corpuscular Volume 87, Mean Corpuscular Hemoglobin 28, Mean Corpuscular Hemoglobin Concent 32, Red Cell Distribution Width 14.6H, Platelet Count 243, Mean Platelet Volume 11.1, Immature Granulocyte % (Auto) 0, Neutrophils (%) (Auto) 53, Lymphocytes (%) (Auto) 30, Monocytes (%) (Auto) 14H, Eosinophils (%) (Auto) 3, Basophils (%) (Auto) 1, Neutrophils # (Auto) 3.8, Lymphocytes # (Auto) 2.1, Monocytes # (Auto) 1.0, Eosinophils # (Auto) 0.2, Basophils # (Auto) 0.0, Immature Granulocyte # (Auto) 0.0, Prothrombin Time 12.4, INR Comment 0.9, Activated Partial Thromboplast Time 30, Sodium Level 143, Potassium Level 3.8, Chloride Level 106, Carbon Dioxide Level 22, Anion Gap 15H, Blood Urea Nitrogen 18, Creatinine 0.97, Estimat Glomerular Filtration Rate 61, BUN/Creatinine Ratio 19, Glucose Level 112H, Calcium Level 9.5, Corrected Calcium 9.3, Magnesium Level 2.1, Total Bilirubin 0.2, Aspartate Amino Transf (AST/SGOT) 31, Alanine Aminotransferase (ALT/SGPT) 24, Alkaline Phosphatase 76, Total Creatine Kinase 374H, Creatine Kinase MB 7.6*H, Myoglobin 101.9H, Troponin I < 0.028, B-Type Natriuretic Peptide 50.1, Total Protein 7.5, Albumin 4.3, Amylase Level 72, Lipase 27 04/21/22 02:30: Urine Color YELLOW, Urine Clarity CLEAR, Urine pH 5.5, Urine Specific Mill[place] <=1.005, Urine Protein NEGATIVE, Urine Glucose (UA) NEGATIVE, Urine Ketones NEGATIVE, Urine Nitrite NEGATIVE, Urine Bilirubin NEGATIVE, Urine Urobilinogen 0.2, Urine Leukocyte Esterase TRACEH, Urine RBC (Auto) NEGATIVE, Urine RBC NONE, Urine WBC RARE, Urine Crystals NONE, Urine Bacteria NEGATIVE, Urine Casts NONE, Urine Mucus NEGATIVE, Urine Culture Indicated NO 04/21/22 04:54: Troponin I < 0.028, Triglycerides Level 136, Cholesterol Level 174, LDL Cholesterol Direct 108, VLDL Cholesterol 27, HDL Cholesterol 51 04/21/22 09:05: Troponin I < 0.028 04/22/22 05:08: White Blood Count 7.1, Red Blood Count 4.11, Hemoglobin 11.4L, Hematocrit 35, Mean Corpuscular Volume 86, Mean Corpuscular Hemoglobin 28, Mean Corpuscular Hemoglobin Concent 32, Red Cell Distribution Width 14.6H, Platelet Count 222, Mean Platelet Volume 11.5, Immature Granulocyte % (Auto) 0, Neutrophils (%) (Auto) 58, Lymphocytes (%) (Auto) 26, Monocytes (%) (Auto) 14H, Eosinophils (%) (Auto) 3, Basophils (%) (Auto) 1, Neutrophils # (Auto) 4.1, Lymphocytes # (Auto) 1.8, Monocytes # (Auto) 1.0, Eosinophils # (Auto) 0.2, Basophils # (Auto) 0.0, Immature Granulocyte # (Auto) 0.0, Sodium Level 142, Potassium Level 4.1, Chloride Level 108H, Carbon Dioxide Level 22, Anion Gap 12, Blood Urea Nitrogen 20H, Creatinine 1.19, Estimat Glomerular Filtration Rate 48, BUN/Creatinine Ratio 17, Glucose Level 108H, Calcium Level 9.1, Corrected Calcium 9.3, Total Bilirubin 0.4, Aspartate Amino Transf (AST/SGOT) 23, Alanine Aminotransferase (ALT/SGPT) 16, Alkaline Phosphatase 61, Total Protein 6.5, Albumin 3.8 Pending Labs Laboratory Tests 04/21/22 02:05: White Blood Count 7.2, Red Blood Count 4.28, Hemoglobin 12.0, Hematocrit 37, Mean Corpuscular Volume 87, Mean Corpuscular Hemoglobin 28, Mean Corpuscular Hemoglobin Concent 32, Red Cell Distribution Width 14.6, Platelet Count 243, Mean Platelet Volume 11.1, Immature Granulocyte % (Auto) 0, Neutrophils (%) (Auto) 53, Lymphocytes (%) (Auto) 30, Monocytes (%) (Auto) 14, Eosinophils (%) (Auto) 3, Basophils (%) (Auto) 1, Neutrophils # (Auto) 3.8, Lymphocytes # (Auto) 2.1, Monocytes # (Auto) 1.0, Eosinophils # (Auto) 0.2, Basophils # (Auto) 0.0, Immature Granulocyte # (Auto) 0.0, Prothrombin Time 12.4, INR Comment 0.9, Activated Partial Thromboplast Time 30, Sodium Level 143, Potassium Level 3.8, Chloride Level 106, Carbon Dioxide Level 22, Anion Gap 15, Blood Urea Nitrogen 18, Creatinine 0.97, Estimat Glomerular Filtration Rate 61, BUN/Creatinine Ratio 19, Glucose Level 112, Calcium Level 9.5, Corrected Calcium 9.3, Magnesium Level 2.1, Total Bilirubin 0.2, Aspartate Amino Transf (AST/SGOT) 31, Alanine Aminotransferase (ALT/SGPT) 24, Alkaline Phosphatase 76, Total Creatine Kinase 374, Creatine Kinase MB 7.6, Myoglobin 101.9, Troponin I < 0.028, B-Type Natriuretic Peptide 50.1, Total Protein 7.5, Albumin 4.3, Amylase Level 72, Lipase 27 04/21/22 02:30: Urine Color YELLOW, Urine Clarity CLEAR, Urine pH 5.5, Urine Specific [place] <=1.005, Urine Protein NEGATIVE, Urine Glucose (UA) NEGATIVE, Urine Ketones NEGATIVE, Urine Nitrite NEGATIVE, Urine Bilirubin NEGATIVE, Urine Urobilinogen 0.2, Urine Leukocyte Esterase TRACE, Urine RBC (Auto) NEGATIVE, Urine RBC NONE, Urine WBC RARE, Urine Crystals NONE, Urine Bacteria NEGATIVE, Urine Casts NONE, Urine Mucus NEGATIVE, Urine Culture Indicated NO 04/21/22 04:54: Troponin I < 0.028, Triglycerides Level 136, Cholesterol Level 174, LDL Cholesterol Direct 108, VLDL Cholesterol 27, HDL Cholesterol 51 04/21/22 09:05: Troponin I < 0.028 04/22/22 05:08: White Blood Count 7.1, Red Blood Count 4.11, Hemoglobin 11.4, Hematocrit 35, Mean Corpuscular Volume 86, Mean Corpuscular Hemoglobin 28, Mean Corpuscular Hemoglobin Concent 32, Red Cell Distribution Width 14.6, Platelet Count 222, Mean Platelet Volume 11.5, Immature Granulocyte % (Auto) 0, Neutrophils (%) (Auto) 58, Lymphocytes (%) (Auto) 26, Monocytes (%) (Auto) 14, Eosinophils (%) (Auto) 3, Basophils (%) (Auto) 1, Neutrophils # (Auto) 4.1, Lymphocytes # (Auto) 1.8, Monocytes # (Auto) 1.0, Eosinophils # (Auto) 0.2, Basophils # (Auto) 0.0, Immature Granulocyte # (Auto) 0.0, Sodium Level 142, Potassium Level 4.1, C hloride Level 108, Carbon Dioxide Level 22, Anion Gap 12, Blood Urea Nitrogen 20, Creatinine 1.19, Estimat Glomerular Filtration Rate 48, BUN/Creatinine Ratio 17, Glucose Level 108, Calcium Level 9.1, Corrected Calcium 9.3, Total Bilirubin 0.4, Aspartate Amino Transf (AST/SGOT) 23, Alanine Aminotransferase (ALT/SGPT) 16, Alkaline Phosphatase 61, Total Protein 6.5, Albumin 3.8 Discharge Home Medications: Active Scripts Active Pantoprazole Sodium 40 Mg Tablet.dr 40 Mg PO DAILY Aspirin EC (Aspirin) 81 Mg Tablet.dr 81 Mg PO DAILY Metoprolol Succinate 25 Mg Tab.er.24h 25 Mg PO DAILY Reported Cyanocobalamin Injection (Cyanocobalamin) 1,000 Mcg/Ml Inj 1,000 Mcg IM MONTHLY Simvastatin 10 Mg Tablet 10 Mg PO HS Xalatan (Latanoprost) 0.005 % Drops 1 Drop OU HS Losartan Potassium 50 Mg Tablet 50 Mg PO BID WITH MEALS Levothyroxine Sodium 50 Mcg Tablet 50 Mcg PO DAILY Instructions to patient/family Please see electronic discharge instructions given to patient. Clinical Quality Measures AMI/AHF: ASA po Prior to arrival: SHERRI Pelayo DO Apr 22, 2022 13:22
--- NOTE | 2022-04-22 13:50 | STRESS TEST ---
DATE OF SERVICE: 04/22/2022 RESTING AND POST REGADENOSON TECHNETIUM-99M TETROFOSMIN SPECT CT IMAGING ORDERING PHYSICIAN: Dolly Eason APRN PRIMARY PHYSICIAN: Dr. Donis. ATTENDING PHYSICIAN: Dr. Herr. OTHER PHYSICIAN: Dr. Kelsey. CLINICAL DIAGNOSIS: Chest discomfort. Baseline images were carried out after injection of 10 mCi of technetium-99m Tetrofosmin. This was followed by 0.4 mg regadenoson and 31 mCi of technetium-99m Tetrofosmin for stress imaging. The electrocardiogram showed mild nonspecific ST abnormality at baseline. It did not change significantly with the regadenoson infusion. The patient noted some shortness of breath following regadenoson infusion, which resolved in a few minutes. Review of images at rest and following stress does not indicate any significant perfusion defects consistent with myocardial ischemia or infarction. Gated images show normal regional wall motion. Left ventricular ejection fraction is calculated to be 40%, but subjectively appears to be higher than that. CONCLUSIONS: 1. No evidence of myocardial ischemia or infarction on this study. 2. Normal regional wall motion. 3. Left ventricular ejection fraction is calculated to be 40%, but subjectively appears to be higher than that. Job ID: [id number] DocumentID: [id number] Dictated Date: 04/22/2022 12:58:47 Industrial Equipment Wirer Date: 04/22/2022 13:49:03 Dictated By: МАРИНА KELSEY MD, MA, FACP, FACC,
--- NOTE | 2022-04-22 16:49 | Progress Note - Cardiology ---
Cardiology SOAP Progress Note Subjective: Daughter (nurse) by her bedside who reports one episode this am where the heart rate was in the 130s and pt was experiencing mild discomfort. It resolved shortly and so did the symptoms No other symptoms reported No cp or palp or syncope or swelling No n/v/d No fever, chills No weakness Objective: I&O/Vital Signs 04/22/22 04/22/22 04/22/22 04/22/22 08:00 08:05 10:00 11:16 Temp 37.1 36.9 Pulse 59 69 68 Resp 18 18 B/P (MAP) 133/58 (83) 164/75 (104) 132/62 (85) Pulse Ox 94 97 94 O2 Delivery Room Air Room Air 04/22/22 04/22/22 04/22/22 12:00 13:00 14:15 Pulse 67 79 Resp 25 B/P (MAP) 133/62 (85) Pulse Ox 95 04/22/22 00:00 Intake Total 1900 ml Balance 1900 ml Weight (Pounds): 171 Weight (Calculated Kilograms): 77.815188 Constitutional: AAO x 3, well-developed, well-nourished Respiratory: No accessory muscle use, No respiratory distress; chest expansion is symmetric, chest is bilaterally symmetric, lungs clear to auscultation Cardiovascular: regular rate-rhythm; No JVD; S1 and S2, systolic murmur (2-3/6 MSM) Gastrointestional: soft, round; No guarding; audible bowel sounds Extremities: no lower extremity edema bilateral Neurologic/Psychiatric: other (moves all limbs equally) Skin: No rash on exposed areas, No ulcerations on exposed areas Results/Procedures: Labs Laboratory Tests 04/22/22 05:08: White Blood Count 7.1, Red Blood Count 4.11, Hemoglobin 11.4L, Hematocrit 35, Mean Corpuscular Volume 86, Mean Corpuscular Hemoglobin 28, Mean Corpuscular Hemoglobin Concent 32, Red Cell Distribution Width 14.6H, Platelet Count 222, Mean Platelet Volume 11.5, Immature Granulocyte % (Auto) 0, Neutrophils (%) (Auto) 58, Lymphocytes (%) (Auto) 26, Monocytes (%) (Auto) 14H, Eosinophils (%) (Auto) 3, Basophils (%) (Auto) 1, Neutrophils # (Auto) 4.1, Lymphocytes # (Auto) 1.8, Monocytes # (Auto) 1.0, Eosinophils # (Auto) 0.2, Basophils # (Auto) 0.0, Immature Granulocyte # (Auto) 0.0, Sodium Level 142, Potassium Level 4.1, Chloride Level 108H, Carbon Dioxide Level 22, Anion Gap 12, Blood Urea Nitrogen 20H, Creatinine 1.19, Estimat Glomerular Filtration Rate 48, BUN/Creatinine Rati o 17, Glucose Level 108H, Calcium Level 9.1, Corrected Calcium 9.3, Total Bilir ubin 0.4, Aspartate Amino Transf (AST/SGOT) 23, Alanine Aminotransferase (ALT/SGPT) 16, Alkaline Phosphatase 61, Total Protein 6.5, Albumin 3.8 Laboratory Tests 04/21/22 02:05 04/22/22 05:08 A/P: Assessment: Chest pain - no evidence of ACS - MPI on 04/22/22: no ischemia or infarction or wall motion abnormality; LVEF calculated to be 40% but, subjectively, appears higher ?PSVT Aortic stenosis - Echocardiogram of 01-29-22 at [facility] [place]. Mcdaniels showed LVEF 60%. Mild to mod aortic valve stenosis, mild to mod aortic regurg. Mild MR and TR. PASP 25 mmHg HTN Hyperlipidemia - treated with statin, managed by Dr Gagandeep Gracia u/s of 02-10-22 showed mild to mod bilat dz Plan: * Continue current regimen, including ASA and bb * Continue ARB * Continue PPI * Discussed with patient and her daughter * Communicated with Dr Herr * Outpt f/u advised Clinical Quality Measures AMI/AHF: ASA po Prior to arrival: МАРИНА Jackson MD [facility] CCDS Apr 22, 2022 16:49
[2022-04-27] MEDS ORDERED: MTP25TSR PO (08:02)
[2022-04-27] MEDS ORDERED: PANT40TA52 PO (08:02)
[2022-04-27] MEDS ORDERED: ASPI-1238 PO (08:02)
== END 2022-04-22 13:21 | disposition home or self-care (01) ==
LOC: EDUNIT# 01:53 → ER 01:56 → EDLOC 03:15 → CSD 03:15 → UNDOADMOB 03:15 → INTOOBSV 03:15 → CSD 04:30 → UNDODISOB 04-22 14:15
PROVIDERS: ADMIT Internal Medicine; ATTEND Internal Medicine
DX: R07.89 Other chest pain (principal); I35.0 Nonrheumatic aortic (valve) stenosis; I10 Essential (primary) hypertension; E78.5 Hyperlipidemia, unspecified; Z79.899 Other long term (current) drug therapy; Z79.82 Long term (current) use of aspirin; I65.23 Occlusion and stenosis of bilateral carotid arteries
CPT/HCPCS: 71045; 78452; 80053 ×2; 80061; 81000; 82150; 82550; 82553; 83690; 83735; 83874; 83880; 84484; 85025 ×2; 85610; 85730; 93005 ×2; 93017; 93041; 99284; A9502; G0378; 36415

== ENCOUNTER 2022-04-27 09:00 | Day surgery (SDC) | payer MEDICARE, OTHER ==
[2022-04-27] VITALS (9 sets, daily range): BP systolic 111–163; BP diastolic 50–73
[~2022-04-27] VITALS: Ht 170.2 cm; Wt 76.8 kg
[2022-04-27 07:50] LABS: HEMATOCRIT 38 % (35-52); HEMOGLOBIN 12.2 g/dL (11.5-16.0); MEAN CORPUSCULAR HEMOGLOBIN 28 pg (25-34); MEAN CORPUSCULAR HGB CONC 32 g/dL (32-36); MEAN CORPUSCULAR VOLUME 88 fL (80-99); MEAN PLATELET VOLUME 11.5 fL (9.0-12.2); PLATELET COUNT 242 10^3/uL (130-400); WHITE BLOOD COUNT 7.1 10^3/uL (4.3-11.0)
[2022-04-27 08:05] LABS: PROTHROMBIN TIME PATIENT 13.2 SEC (12.2-14.7)
[2022-04-27 08:09] LABS: ALBUMIN 4.2 GM/DL (3.2-4.5); BILIRUBIN,TOTAL 0.4 MG/DL (0.1-1.0); CALCIUM 9.4 MG/DL (8.5-10.1); CREATININE SERUM 1.22 MG/DL (0.60-1.30); POTASSIUM 3.7 MMOL/L (3.6-5.0); TOTAL PROTEIN 7.3 GM/DL (6.4-8.2)
[~2022-04-27 09:00] MED LIST: ASPI-1238 PO; CNC1KV IM; HEParin (CATH LAB) 2,000 ML IV ONE; LATA2.5D19 OU; LEVO50TA6 PO; LIDOCAINE 1% INJ 20 ML VIAL ONE; LOSA50TA63 PO; MTP25TSR PO; NS IV 1000 ML 1,000 ML IV SCH; NS IV 1000 ML 1,000 ML ONE; PANT40TA52 PO; SIMV10TA26 PO
[2022-04-27] MEDS ORDERED: ONDANSETRON 4 MG/2 ML (SDV) Z0FRAN ONE (11:42)
[2022-04-27] MEDS ORDERED: diphenhydrAMINE 50 MG/ML INJ (BENADRYL) ONE (11:42)
[2022-04-27] MEDS ORDERED: MIDAZOLAM 2 MG/2 ML (VERSED) VIAL ONE ×2 (12:01→12:32)
[2022-04-27] MEDS ORDERED: fentaNYL INJ 100 MCG/2 ML AMP ONE (12:33)
--- NOTE | 2022-04-27 12:33 | Cardiac Procedure Note-CS/ASA ---
Pre-Procedure Note Pre-Op Procedure Note Date of Available H&P: Apr 26, 2022 Date H&P Reviewed: Apr 27, 2022 Time H&P Reviewed: 11:30 History & Physical: No changes noted Conscious Sedation Pre-Proced Time 11:30 ASA Score 3 For ASA 3 and 4: Consider anesthesia and medical clearance. Also, for patients with a history of failed moderate sedation consider anesthesia. Airway Lungs Heart ASA score ASA 1: a normal healthy patient ASA 2: a patient with a mild systemic disease (mid diabetes, controlled hypertension, obesity ASA 3: a patient with a severe systemic disease that limits activity (angina, COPD, prior Myocardial infarction) ASA 4: a patient with an incapacitating disease that is a constant threat to life (CHF, renal failure) ASA 5: a moribund patient not expected to survive 24 hrs. (ruptured aneurysm) ASA 6: a declared brain- patient whose organs are being harvested. For emergent operations, add the letter E after the classification Mallampati Classification Grade 2 Sedation Plan Analgesia, Amnesia, Plan communicated to team members The patient is an appropriate candidate to undergo the planned procedure, sedation, and anesthesia. The patient immediately re-assessed prior to indication. МАРИНА BROWN MD FACP FAC CCDS Apr 27, 2022 12:33
[2022-04-27] MEDS ORDERED: PATIENT MAY USE OWN MEDS, ALL PO SCH (13:15)
[2022-04-27] MEDS ORDERED: NS IV 1000 ML 1,000 ML IV SCH (13:15)
--- NOTE | 2022-04-27 13:15 | Discharge Inst-Post CATH ---
Discharge Inst-CATH/EP Post Cardiac Cath/EP D/C Inst Follow Up/Plan F/u with Dr Kelsey in 1-2 weeks ACTIVITY * Go Home directly and rest. * Limit activity of the leg (or wrist if it was used) for 7 days including aerobics, swimming, jogging, bicycling, etc. * Restrict stair-climbing for 7 days if possible, if not, climb up with your non-cath leg, then bring together on the same step. * Avoid lifting, pushing, pulling or excessive movement of the affected extremity for 7 days. * Customary sexual activity may be resumed after 2 days-use caution not to use a position that strains or causes pain to the affected extremity. * No driving for 24 hours. * NO SMOKING. * Avoid straining for bowel movements for 7 days. * Gentle walking on level ground is allowed. * Returning to work will depend on the type of procedure and the results. Your doctor will discuss this with you. CALL YOUR DOCTOR FOR ANY OF THE FOLLOWING: *If bleeding from the puncture site occurs- Apply gentle pressure to site with clean cloth and call your doctor or EMS. * If a knot or lump forms under the skin, increases in size, or causes pain. * If bruising appears to be worsening or moving further down your leg instead of disappearing. * Temperature above 101 F. CARE OF YOUR GROIN INCISION; * Bruising or purple discoloration of the skin near the puncture site is common. * You may shower only, no bathtub bathing for 5 days. Be careful to avoid slipping as your leg may feel stiff. * If a closure device was used on your femoral artery, please see the attached guide regarding care of the device and your leg. * Leave dressing on FOR 24 hours. CARE OF YOUR WRIST INCISION; * Bruising or purple discoloration of the skin near the puncture site is common. * You may shower. * DO NOT submerge wrist. * Leave dressing on FOR 24 hours. МРАИНА KELSEY MD FACP FAC CCDS Apr 27, 2022 13:14
--- NOTE | 2022-04-27 13:15 | Discharge Inst-Cardiology ---
Discharge Inst-Cardiac Discharge Medications Continued Medications: Aspirin (Aspirin EC) 81 Mg Tablet.dr 81 MG PO DAILY, TAB Cyanocobalamin (Cyanocobalamin Injection) 1,000 Mcg/Ml Inj 1000 MCG IM MONTHLY, MCG Latanoprost (Xalatan) 0.005 % Drops 1 DROP OU HS, DROPS Levothyroxine Sodium (Levothyroxine Sodium) 50 Mcg Tablet 50 MCG PO DAILY, TAB Losartan Potassium (Losartan Potassium) 50 Mg Tablet 50 MG PO BID WITH MEALS, TAB Metoprolol Succinate (Metoprolol Succinate) 25 Mg Tab.er.24h 25 MG PO DAILY, TAB Pantoprazole Sodium (Pantoprazole Sodium) 40 Mg Tablet.dr 40 MG PO DAILY, TAB Simvastatin (Simvastatin) 10 Mg Tablet 10 MG PO HS, TAB МАРИНА BROWN MD FACP FAC CCDS Apr 27, 2022 13:15
--- NOTE | 2022-04-27 13:50 | CARDIAC CATHETERIZATION ---
DATE OF SERVICE: 04/27/2022 CARDIAC CATHETERIZATION REPORT This is a 77-year-old lady, who has coronary artery disease risk factors and who has been experiencing intermittent chest discomfort and some features are suggestive of new onset of angina. Cardiac catheterization was carried out today after having obtained an informed consent. DESCRIPTION OF PROCEDURE: She was brought to the cardiac catheterization laboratory in a fasting state. Right groin was prepared and draped in the usual sterile fashion. Lidocaine 1% was used for local anesthesia. Modified Seldinger technique was used to advance a 5-Kazakh sheath in the right femoral artery, 5-Kazakh JL4 catheter for left coronary angiography, 5-Kazakh JR4 catheter for right coronary angiography. A 5-Kazakh pigtail catheter was used for left heart catheterization and left ventricular angiography. Subsequently, the patient was transferred to the holding area for manual sheath removal. She tolerated the procedure well. HEMODYNAMICS: Left ventricular end-diastolic pressure following coronary angiography was 20 mmHg. There was no significant pressure gradient on pullback across the aortic valve. CORONARY ANGIOGRAPHY: Left main coronary artery is extremely short. 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 No significant obstructive disease is seen in the left coronary system. Minimal plaque is noted in the left anterior descending. Right coronary artery does not exhibit significant disease. Right coronary artery is dominant. LEFT VENTRICULAR ANGIOGRAPHY: Left ventricular angiography was carried out in the right anterior oblique projection. Global left ventricular systolic function was normal, no regional wall motion abnormality is seen in this view. Left ventricular ejection fraction approximately 60% to 65%. CONCLUSIONS: 1. Minimal coronary plaque. 2. Normal global left ventricular systolic function with ejection fraction of 60 to 65%. 3. Elevated left ventricular end-diastolic pressure. DISCUSSION AND RECOMMENDATIONS: Based on results of the study, it appears appropriate to continue a conservative approach. Risk factor modification has been reviewed. Current regimen is being continued. Outpatient followup is advised. Job ID: [id number] DocumentID: [id number] Dictated Date: 04/27/2022 13:18:22 Religious Leader Date: 04/27/2022 13:49:35 Dictated By: МАРИНА BROWN MD, MA, FACP, FACC,
== END 2022-04-27 16:00 | disposition home or self-care (01) ==
LOC: CATH 09:00
PROVIDERS: ATTEND Internal Medicine Cardiovascular Disease
DX: R07.9 Chest pain, unspecified (principal); I10 Essential (primary) hypertension; E78.5 Hyperlipidemia, unspecified; I65.23 Occlusion and stenosis of bilateral carotid arteries; I08.0 Rheumatic disorders of both mitral and aortic valves
CPT/HCPCS: 80053; 80061; 85027; 85610; 85730; 87081; 93005; 93458; C1894; 36415

== ENCOUNTER 2022-05-17 12:13 | Outpatient (CLI) | payer MEDICARE, OTHER ==
[~2022-05-17 12:13] MED LIST changes: -HEParin (CATH LAB) 2,000 ML IV ONE; -LIDOCAINE 1% INJ 20 ML VIAL ONE; -NS IV 1000 ML 1,000 ML IV SCH; -NS IV 1000 ML 1,000 ML ONE
== END 2022-05-17 12:35 ==
LOC: SLEEP 12:13
PROVIDERS: ATTEND Family Medicine
DX: G47.33 Obstructive sleep apnea (adult) (pediatric) (principal)
CPT/HCPCS: G0399

== ENCOUNTER → 2022-05-21 | Outpatient (CLI) | payer MEDICARE, OTHER | LOC: CARD 08:30 | PROVIDERS: ATTEND Internal Medicine Cardiovascular Disease | DX: I20.8 Other forms of angina pectoris (principal) | CPT/HCPCS: 93225; 93226 ==

== ENCOUNTER 2022-08-04 19:32 | Outpatient (CLI) | payer MEDICARE, OTHER | END 2022-08-05 06:18 | disposition home or self-care (01) | LOC: SLEEP 19:32 | PROVIDERS: ATTEND Otolaryngology Otolaryngology/Facial Plastic Surgery | DX: G47.33 Obstructive sleep apnea (adult) (pediatric) (principal) | CPT/HCPCS: 95811 ==